=== PATIENT | male | born 2000 | race Caucasian/White ===

== ENCOUNTER 2020-07-26 17:56 | Emergency (ER) | payer OTHER ==
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
[2020-07-26 20:23] VITALS: BP 118/79; PULSE 98; RESP 18; TEMP 98.5
== END 2020-07-26 19:50 | disposition home or self-care (01) ==
LOC: EC 17:56
DX: M79.652 Pain in left thigh (principal); M79.651 Pain in right thigh; V43.52XA Car driver injured in collision with other type car in traffic accident, initial encounter; Y92.410 Unspecified street and highway as the place of occurrence of the external cause
CPT/HCPCS: 99283